=== PATIENT | male | born 1955 | race Caucasian/White ===

== ENCOUNTER 2016-05-25 10:53 | Emergency (ER) | payer BC ==
--- NOTE | ~2016-05-25 | ER ---
PATIENT'S NAME: MARCELLUS CONROY [facility] AGE: 60 Y [address] ROOM: [place] [id number] LOCATION: [facility] ADMIT DATE: 05/25/2016 ER/Outpatient Report DISCHARGE DATE: 05/25/2016 FAMILY PHYSICIAN: PHYSICIAN, NO ATTENDING PHYSICIAN: Cheryl Perla Time of Arrival: 10:53. Time of Evaluation: 11:30. IDENTIFICATION: A 60-year-old male. CHIEF COMPLAINT: Seeping abdominal wound. HISTORY OF PRESENT ILLNESS: The patient is a 60-year-old male from [place], who had a cholecystectomy that turned out to be an open cholecystectomy on July 05. One week ago, his colt were removed. They are traveling to [place] to visit family. On the , he noted some drainage from the incisional area, purulent drainage and a little bit of redness. No fever. No significant increase in pain. No nausea or vomiting. No other problems or concerns. PAST MEDICAL HISTORY: ALLERGIES: NO KNOWN DRUG ALLERGIES. CURRENT MEDICATIONS: 1. Metformin 1000 mg b.i.d. 2. Glipizide 5 mg b.i.d. 3. Lantus 45 units q.a.m. 4. Plavix 75 mg q.a.m. 5. Sucralfate 1 g q.i.d. 6. Cilostazol 100 mg b.i.d. 7. Aspirin 81 mg daily. 8. Ranexa 1000 mg b.i.d. 9. Gabapentin 300 mg t.i.d. 10. KCl 20 mEq daily. 11. Flomax 0.4 mg q.a.m. 12. Temazepam 15 mg at bedtime. 13. Percocet p.r.n. MEDICAL PROBLEMS: Diabetes mellitus, insulin requiring; pancreatitis; BPH; and coronary artery PATIENT'S NAME: [facility] AGE: 60 Y [address] ROOM: [place], [place] [address] LOCATION: ED ADMIT DATE: 05/25/2016 ER/Outpatient Report DISCHARGE DATE: 05/25/2016 FAMILY PHYSICIAN: PHYSICIAN, NO ATTENDING PHYSICIAN: Cheryl Perla disease. PRIOR SURGERIES: Cholecystectomy. SOCIAL HISTORY: The patient is from [place]. Tobacco use: Two packs per day for 45 years, quit in October 2015. Alcohol use: Sober for 8 years. Drug use: Denies. REVIEW OF SYSTEMS: All systems reviewed and negative other than what is noted in the HPI. PHYSICAL EXAMINATION: VITAL SIGNS: Height 5 feet 11 inches, weight 85 kg. Blood pressure 145/82, pulse 112, respirations 16, temperature 97.9, and saturations 95%. GENERAL: A 60-year-old male, in no acute distress. HEENT: Unremarkable. LUNGS: Clear to auscultation. HEART: Regular rate and rhythm. ABDOMEN: Soft, nondistended, nontender. SKIN: [place], warm, and dry. Steri-Strips in place in the right upper quadrant. There was erythema around the middle portion of the incision with some purulent drainage, which was cultured. No significant tenderness though. We discussed and offered plans with him. IMPRESSION: Superficial cellulitis postop. PLAN: Keflex 500 mg t.i.d. for 7 days. Follow up immediately if fever, increase in pain, nausea or vomiting. Cultures obtained. Follow up with physician of choice in 1 to 7 days. The patient and his understand and agree, and all questions have been answered. MD ELIJAH SORIANO/[email or web address] /[id number] d: 05/26/16 0129 t: 05/26/16 1512, OUTPATIENT REPORT
== END 2016-05-25 12:15 | disposition disaster alternative care site (69) ==
LOC: GMED 10:53
DX: T81.4XXA Infection following a procedure, initial encounter (principal); E11.9 Type 2 diabetes mellitus without complications; N40.0 Benign prostatic hyperplasia without lower urinary tract symptoms; I25.10 Atherosclerotic heart disease of native coronary artery without angina pectoris; Z90.49 Acquired absence of other specified parts of digestive tract; Z79.4 Long term (current) use of insulin; Z87.891 Personal history of nicotine dependence; Z79.82 Long term (current) use of aspirin; Z79.02 Long term (current) use of antithrombotics/antiplatelets; Z79.899 Other long term (current) drug therapy; Y83.8 Other surgical procedures as the cause of abnormal reaction of the patient, or of later complication, without mention of misadventure at the time of the procedure